=== PATIENT | male | born 1970 | race Caucasian/White ===

== ENCOUNTER → 2019-08-23 11:44 | Outpatient (CLI) | payer MEDICARE ==
[2019-08-23 13:19] LABS: ALBUMIN 4.2 g/dL (3.4-5.0); ALKALINE PHOSPHATASE 71 U/L (30-120); ALT (SGPT) 45 U/L (10-68); BILIRUBIN - TOTAL 0.31 mg/dL (0.2-1.3); CALC OSMOLALITY 275 mosm/kg (275-300); CALCIUM 8.4 mg/dL (8.5-10.1); CARBON DIOXIDE 27.8 mmol/L (21.0-32.0); CHLORIDE - SERUM 101 mmol/L (98-107); CHOL - HDL RATIO 7.5 ratio (2.3-4.9); CHOLESTEROL, TOTAL 218 mg/dL (0-200); CREATININE - SERUM 1.1 mg/dL (0.6-1.3); GLUCOSE 109 mg/dL (74-106); HDL CHOLESTEROL 29 mg/dL (32-96); POTASSIUM - SERUM 3.8 mmol/L (3.5-5.1); PROTEIN - SERUM 7.5 g/dL (6.4-8.2); SODIUM 137 mmol/L (136-145); THYROID STIMULATING HORMONE 1.26 uIU/mL (0.36-3.74); UREA NITROGEN 15 mg/dL (7-18); eGFR NON AFRICAN AMERICAN 75 mL/min (90-120)
[2019-08-23 13:23] LABS: TRIGLYCERIDE 553 mg/dL (30-200)
[2019-08-23 13:24] LABS: HEMATOCRIT 43.1 % (42.0-54.0); HEMOGLOBIN 15.2 g/dL (13.5-17.5); LYMPHOCYTES 26.5 % (15-50); MCH 33.3 pg (26.0-34.0); MCHC 35.3 g/dL (31.0-37.0); MCV 94.3 fL (80.0-100.0); MEAN PLATELET VOLUME 9.3 fL (7.4-10.4); NEUTROPHILS 64.6 % (40-80); PLATELET COUNT 318 10x3/uL (130-400); RBC 4.57 10x6/uL (4.20-6.10); RDW 12.9 % (11.5-14.5); WBC 7.3 10x3/uL (4.8-10.8)
== END | disposition home or self-care (01) ==
LOC: D.LAB 11:44
PROVIDERS: ATTEND Family Medicine
DX: I10 Essential (primary) hypertension (principal); G47.00 Insomnia, unspecified; K45.8 Other specified abdominal hernia without obstruction or gangrene; Z00.00 Encounter for general adult medical examination without abnormal findings

== ENCOUNTER → 2020-04-10 07:42 | Outpatient (CLI) | payer MEDICARE ==
[2020-04-10 08:26] LABS: CHOL - HDL RATIO 4.4 ratio (2.3-4.9); LDL-HDL RATIO 2.6 ratio (1.5-3.5)
== END | disposition home or self-care (01) ==
LOC: D.LAB 07:42
PROVIDERS: ATTEND Family Medicine
DX: E78.5 Hyperlipidemia, unspecified (principal)